=== PATIENT | male | born 1985 | race African-American/Black ===

== ENCOUNTER 2017-07-02 15:42 | Emergency (ER) | payer OTHER ==
[~2017-07-02] VITALS: Ht 195.6 cm; Wt 83.9 kg
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
[~2017-07-02 15:42] MED LIST: NAPROSYN500 MG PO
== END 2017-07-02 18:10 | disposition home or self-care (01) ==
LOC: CED 15:42 → CFTX 15:42
DX: S13.4XXA Sprain of ligaments of cervical spine, initial encounter (principal); S33.5XXA Sprain of ligaments of lumbar spine, initial encounter; J45.909 Unspecified asthma, uncomplicated; F17.210 Nicotine dependence, cigarettes, uncomplicated; V43.62XA Car passenger injured in collision with other type car in traffic accident, initial encounter; Y92.410 Unspecified street and highway as the place of occurrence of the external cause
CPT/HCPCS: 72040; 72100; 96372; 99283; J1885